=== PATIENT | female | born 1960 | race Caucasian/White ===

== ENCOUNTER 2019-12-15 14:42 | Emergency (ER) | payer OTHER ==
[~2019-12-15] VITALS: Ht 160 cm; Wt 69.5 kg
[~2019-12-15 14:42] MED LIST: ARIMIDEX1 MG PO; ATIVAN 1MG T1 MG/TAB PO; CIPRO 500MG TA500 MG PO; CLEOCIN HC150 MG/CAP; COMPAZINE 5MG TA5 MG PO; COZAAR 25MG25 MG/TAB PO; NOLVADEX 1010 MG/TAB PO; PERCOCET 325 MG1 TA2; PERCOCET 325 MG1 TA2 PO; PERCOCET 5/321 UDTAB PO; PRILOSEC 20MG20 MG PO; PRINIVIL10 MG PO; RITALIN 5MG5 MG/TAB PO; SENOKOT TABLET1 EA PO; TAMOXIFEN CITRA20 MG PO; ULTRAM 50MG TAB50 MG PO; VALIUM 2MG T2 MG/TAB PO; WELLBUTRIN SR150 M1 PO; ZOFRAN 4MG T4 MG/TAB PO; ZOFRAN8 MG PO; ZYBAN150 MG PO
[2019-12-15 14:49] VITALS: BP 138/78
[2019-12-15] MEDS ORDERED: NAPROSYN500 MG PO (14:59)
[2019-12-15] MEDS ORDERED: ROBAXIN 75750 MG/TAB PO (15:01)
[2019-12-15] MEDS ORDERED: LIDODERM 5% PATC1 EA TP (15:27)
[2019-12-15] MEDS ORDERED: MEDROL 4MG DOSPA4 MG PO (15:27)
[2019-12-15] MEDS ORDERED: SKELAXIN 800MG800 MG PO (15:27)
[2019-12-15] MEDS ORDERED: NORCO 325 MG-7.1 TAB PO (15:59)
[2019-12-15 16:35] VITALS: PULSE 80; TEMP 97.4
== END 2019-12-15 16:35 | disposition home or self-care (01) ==
LOC: COL.ER 14:42
DX: M54.41 Lumbago with sciatica, right side (principal); F32.9 Major depressive disorder, single episode, unspecified; F41.9 Anxiety disorder, unspecified; I10 Essential (primary) hypertension; Z85.3 Personal history of malignant neoplasm of breast; Z90.710 Acquired absence of both cervix and uterus; Z87.891 Personal history of nicotine dependence
CPT/HCPCS: J1885

== ENCOUNTER → 2019-12-21 | Outpatient (CLI) | payer OTHER ==
[~2019-12-21] MED LIST changes: +LIDODERM 5% PATC1 EA TP; +MEDROL 4MG DOSPA4 MG PO; +NAPROSYN500 MG PO; +NORCO 325 MG-7.1 TAB PO; +ROBAXIN 75750 MG/TAB PO; +SKELAXIN 800MG800 MG PO
== END ==
LOC: COL.RAD 09:43
DX: M51.27 Other intervertebral disc displacement, lumbosacral region (principal); M48.061 Spinal stenosis, lumbar region without neurogenic claudication; Z85.3 Personal history of malignant neoplasm of breast

== ENCOUNTER 2020-01-02 16:51 | Emergency (ER) | payer OTHER ==
[~2020-01-02] VITALS: Ht 160 cm; Wt 67.3 kg
[2020-01-02 17:15] VITALS: TEMP 98.7
[2020-01-02 19:27] LABS: COLLECTION METHOD CLEAN CATCH
[2020-01-02 19:39] LABS: MUCOUS Present /lpf; PH 6 (5-8); URINE APPEARANCE Hazy; URINE BACTERIA Rare /hpf; URINE BILIRUBIN Negative (NEGATIVE); URINE BLOOD Negative (NEGATIVE); URINE COLOR Yellow; URINE GLUCOSE Negative (NEGATIVE); URINE KETONE Negative (NEGATIVE); URINE LEUKOCYTE ESTERASE Trace (NEGATIVE); URINE NITRATE Negative (NEGATIVE); URINE PROTEIN(semi-quant) Negative (NEGATIVE); URINE RBC 0-2 /hpf; URINE UROBILINOGEN Negative (NEGATIVE)
[2020-01-02] MEDS ORDERED: MEDROL 4MG DOSPA4 MG PO (21:21)
[2020-01-02] MEDS ORDERED: NORCO 325 MG-51 TAB PO (21:21)
[2020-01-02] MEDS ORDERED: CEPHALEXIN500 M1 PO (21:21)
[2020-01-02] MEDS ORDERED: ROBAXIN 75750 MG/TAB PO (21:26)
[2020-01-02 21:34] VITALS: BP 117/76; PULSE 88
[2020-01-02] MEDS ORDERED: NAPROXEN 3375 MG/TAB PO (21:44)
== END 2020-01-02 21:55 | disposition home or self-care (01) ==
LOC: COL.ER 16:51
PROVIDERS: Emergency Medicine
DX: M54.16 Radiculopathy, lumbar region (principal); N39.0 Urinary tract infection, site not specified; M54.41 Lumbago with sciatica, right side
CPT/HCPCS: J1170; J1885

== ENCOUNTER → 2020-01-17 | Outpatient (CLI) | payer OTHER ==
[~2020-01-17] MED LIST changes: +CEPHALEXIN500 M1 PO; +NAPROXEN 3375 MG/TAB PO; +NORCO 325 MG-51 TAB PO
== END ==
LOC: MHCPAIN 14:25
DX: M53.3 Sacrococcygeal disorders, not elsewhere classified (principal); M54.16 Radiculopathy, lumbar region; M51.27 Other intervertebral disc displacement, lumbosacral region
CPT/HCPCS: G0463

== ENCOUNTER → 2020-01-19 | Outpatient (CLI) | payer OTHER | LOC: MHCPAIN 07:40 | DX: M54.5 Low back pain (principal); M53.3 Sacrococcygeal disorders, not elsewhere classified | CPT/HCPCS: J1100; Q9967 ==

== ENCOUNTER → 2020-01-25 | Outpatient (CLI) | payer OTHER | LOC: MHCPAIN 13:41 | DX: M47.27 Other spondylosis with radiculopathy, lumbosacral region (principal); G89.29 Other chronic pain | CPT/HCPCS: G0463 ==

== ENCOUNTER 2023-12-24 23:56 | Emergency (ER) | payer OTHER ==
[~2023-12-24] VITALS: Ht 160 cm; Wt 72.7 kg
[2023-12-25] VITALS: TEMP 98.2
[2023-12-25 00:14] LABS: BASO % 0.3 % (0.0-2.0); EOS # 0.1 K/mm3 (0.0-0.7); EOS % 1.5 % (0.0-4.0); GRAN # 4.1 K/mm3 (1.4-6.5); GRAN % 45.7 % (42.2-75.2); HEMOGLOBIN 14.3 g/dl (12.5-16.0); LYMPH # 3.9 K/mm3 (1.2-3.4); MEAN CELL VOLUME 85 fl (80.0-100.0); MEAN CORPUSCULAR HEMOGLOBIN 28 pg (27-31); MEAN CORPUSCULAR HGB CONC 33 g/dl (33.0-37.0); MEAN PLATELET VOLUME 9.3 fl (7.4-10.4); MONO # 0.7 K/mm3 (0.1-0.6); MONO % 8.1 % (1.7-9.3); PLATELET COUNT 220 K/mm3 (130-400)
[2023-12-25 00:34] LABS: ALANINE AMINOTRANSFERASE 27 U/L (0-55); ALBUMIN 3.8 gm/dL (3.4-4.8); ALKALINE PHOSPHATASE 92 U/L (40-150); ANION GAP 12 mmol/L (7-16); AST,SGOT 21 U/L (5-34); BILIRUBIN,TOTAL 0.5 mg/dL (0.2-1.2); BLOOD UREA NITROGEN 17 mg/dL (10-20); C-REACTIVE PROTEIN 0.52 mg/dL (0.00-0.50); CALCIUM 9.7 mg/dL (8.4-10.2); CARBON DIOXIDE 21 mmol/L (23-31); CHLORIDE 106 mmol/L (98-107); CREATININE, serum 0.82 mg/dL (0.57-1.11); GLUCOSE 101 mg/dL (70-99); LIPASE 20 U/L (8-78); SODIUM 139 mmol/L (136-145); TOTAL PROTEIN 7.2 gm/dL (6.2-8.1)
[2023-12-25 00:40] LABS: TROPONIN-I < 0.010 ng/mL (0.00-0.033)
[2023-12-25 03:42] VITALS: BP 132/93; PULSE 83
== END 2023-12-25 03:42 | disposition home or self-care (01) ==
LOC: COL.ER 23:56
PROVIDERS: Nurse Practitioner Primary Care
DX: R07.89 Other chest pain (principal)